=== PATIENT | male | born 1980 | race Caucasian/White ===

== ENCOUNTER 2023-10-08 05:05 | Emergency (ER) | payer OTHER, SELFPAY ==
[2023-10-08 05:10] VITALS: BP 150/95
[2023-10-08 05:38] VITALS: BMI 26.0
[2023-10-08 06:00] VITALS: BP 154/93
[2023-10-08 06:02] LABS: % Basophils 0.4 % (0-2); % Immature Granulocytes 0.3 % (0-0.5); % Lymphocytes 16.2 % (20.5-51.1); % Monocytes 6.1 % (1.7-9.3); Absolute Basophils 0.1 10^3/uL (0-0.2); Absolute Lymphocytes 2.1 10^3/uL (1.2-3.4); Absolute Monocytes 0.8 10^3/uL (0.1-0.6); Absolute Neutrophils 9.9 10^3/uL (1.4-6.5); Hematocrit 39.3 % (39.0-52.0); Hemoglobin 14.6 g/dL (13.0-18.0); Mean Corp Hgb Conc. 37.2 g/dL (33.0-37.0); Mean Corpuscular Hgb 31.2 pg (27.0-31.0); Mean Platelet Volume 9.7 fL (7.4-10.4); Nucleated Red Blood Cells % 0 % (-); Platelet Count 253 10^3/uL (130-400); Red Blood Cell Count 4.68 10^6/uL (4.70-6.10); Red Cell Dist. Width 12.9 % (11.5-14.5); White Blood Cell Count 12.9 10^3/uL (4.8-10.8)
[2023-10-08 06:18] LABS: Blood Urea Nitrogen 13 mg/dl (9-20); Calcium 8.5 mg/dl (8.4-10.2); Carbon Dioxide 23 mmol/L (22-30); Chloride 102 mmol/L (98-107); Estimated Creatinine Clearance > 125 ml/min; Glucose 118 mg/dl (70-99); Potassium 3.5 mmol/L (3.5-5.1); Sodium 135 mmol/L (135-145); eGFR > 60.00
[2023-10-08 06:21] LABS: Alcohol None Detected
[2023-10-08 06:42] LABS: Amphetamines Negative (Negative); Barbiturates Negative (Negative); Benzodiazepines Positive (Negative); Buprenorphine Negative (Negative); Cocaine Negative (Negative); Marijuana Negative (Negative); Methadone Negative (Negative); Methamphetamines Negative (Negative); Opiates Negative (Negative); Phencyclidine Negative (Negative); Tricyclic Antidepressants Negative (Negative)
--- NOTE | 2023-10-08 06:43 | ED.GENMED ---
History of Present Illness
General
Chief Complaint: Psychiatric Problem
Source: patient and family
Time Seen by Provider: 10/08/23 06:35
History of Present Illness
History of Present Illness:
43-year-old male presents to the emergency room complaining of depression and anxiety. Patient has a history of bipolar disease. He had been taking medication when he was young but stopped taking them approximately 20 years ago. He recalls being
on lithium and some other medication. He has been doing well without medication up until recently when he broke up with his girlfriend. This has exacerbated his anxiety. He has not been able to sleep. He has been self-medicating with alcohol.
Patient was [place]' where they said nothing was done. They have come here hoping for some psychiatric intervention and medications. Denies suicidal thoughts
Phy Exam
Physical Exam
Physical Exam:
General: Awake, Alert, Oriented X3. Appears anxious, withdrawn
Vitals: unremarkable
Head: Atraumatic
Eyes: Pupils equal, EOMI
Throat: Airway intact, no exudates
Neck: Trachea midline
Lungs: Clear and equal b/l
Heart: Regular rate, no murmurs
Abd: Soft, Nontender, No pulsatile mass
Neuro: Nonfocal
Skin: Warm, dry, no rash
Extremities: pulses equal b/l, no edema
Course
Orders/Labs/Results
Orders:
Orders
10/08/23 05:15
1:1 Observation - Suicide/ Violent Behavior As Directed
10/08/23 05:44
Crisis Consult Routine
Reason for Consult: suicidal ideation
10/08/23 05:52
Alcohol Urgent
Basic Metabolic Panel Urgent
Complete Blood Count/With Diff Urgent
Fentanyl, Urine Urgent
Urine Drug Abuse Screen Urgent
Date Specimen was Collected: 10/08/23
Time Specimen was Collected: 05:37
10/08/23 06:43
Lorazepam [Ativan] 1 mg PO NOW STA
Abnormal Lab Results
10/08/23
05:52
WBC 12.9 H 10^3/uL
(4.8-10.8)
RBC 4.68 L 10^6/uL
(4.70-6.10)
MCH 31.2 H pg
(27.0-31.0)
MCHC 37.2 H g/dL
(33.0-37.0)
Absolute Neuts (auto) 9.9 H 10^3/uL
(1.4-6.5)
Absolute Monos (auto) 0.8 H 10^3/uL
(0.1-0.6)
Neutrophils % 77.0 H %
(42.2-75.2)
Lymphocytes % 16.2 L %
(20.5-51.1)
Glucose 118 H mg/dl
(70-99)
U Benzodiazepines Scrn Positive H
(Negative)
10/08/23 05:52
10/08/23 05:52
Vital Signs
Initial and Last Documented VS:
Initial Vital Signs
Temp Pulse Resp BP Pulse Ox
99.5 F 91 20 150/95 97
10/08/23 05:10 10/08/23 05:10 10/08/23 05:10 10/08/23 05:10 10/08/23 05:10
Last Documented Vital Signs
Temp Pulse Resp BP Pulse Ox
99.5 F 88 18 154/93 97
10/08/23 05:10 10/08/23 06:00 10/08/23 06:00 10/08/23 06:00 10/08/23 06:00
MDM/Problems Addressed
Differential Diagnosis Includes:
anxiety, exacerbation of bipolar dz
MDM/Problems Addressed:
No acute medical issues. Patient is nonsuicidal. He met with [facility]. Provided some outpatient resources. Will discharge the patient with a small prescription for lorazepam to get him through until he can meet with someone as an outpatient
for long-term treatment.
*Pulse Oximetry
Patient hypoxic: no
*Critical Care Note
Total Time (30-74mins, 75-104mins- exclusive of procedures): Not Applicable
ED Attending Note
-
Portions of this chart may have been created with voice recognition software.� Occasional wrong word or��sound alike� substitutions may have occurred due to the inherent limitations of voice recognition software.
Discharge Plan
Departure
Patient Disposition: Home (Routine Discharge)
Date of Disposition: 10/08/23
Time of Disposition: 08:29
Patient with high blood pressure during this ER visit?: Yes
Condition: Good
Discharge Problem:
Anxiety
Instructions: Anxiety, Adult (DC), Bipolar Disorder (DC)
Prescriptions:
New
lorazepam 1 mg tablet
1 mg PO TID PRN (Reason: anxiety) Qty: 12 0RF
Referrals:
NONE,* [Family Provider] -
Activity Restrictions/Additional Instructions:
Please follow up with a psychiatrist as soon as possible.
Interventions
Interventions:
*Risk Screen - Suicide Last Done: 10/08/23 05:10
*General Assessment Last Done: 10/08/23 05:10
*Neglect/Abuse Screening Last Done: 10/08/23 05:10
ED- Fall Risk Assessment Last Done: 10/08/23 05:10
*ED COVID-19 Vaccine History Last Done: 10/08/23 05:10
ED-Psychological Assessment Last Done: 10/08/23 06:06
Discharge Date and Time
Print Language: AZERI
[2023-10-08] MEDS: ATIVAN 1 MG PO (06:48)
[2023-10-08 07:07] LABS: Fentanyl, Urine Negative (Negative)
[2023-10-08 08:38] VITALS: BP 138/95
== END 2023-10-08 08:52 | disposition home or self-care (01) ==
LOC: EMR 05:05
PROVIDERS: Emergency Medicine; EMERGENCY PHYSICIAN Emergency Medicine
DX: F41.8 Other specified anxiety disorders (principal); F31.9 Bipolar disorder, unspecified
CPT/HCPCS: 99283; 80048; 80306; 80307; 82077; 85025